=== PATIENT | male | born 1950 | race American Indian/Alaskan Native ===

== ENCOUNTER 2020-10-06 11:03 | Outpatient (CLI) | payer MEDICARE ==
--- NOTE | 2020-10-06 14:20 | Cat Scan Report ---
CT ABDOMEN AND PELVIS WITHOUT CONTRAST INDICATION / CLINICAL INFORMATION: MALIGNANT NEOPLASM OF PROSTATE. TECHNIQUE: Axial CT images were obtained through the abdomen and pelvis without IV contrast. Sagittal and frazier l reformatted images. All CT scans at this location are performed using CT dose reduction for ALARA b y means of automated exposure control. COMPARISON: None available. FINDINGS: LOWER CHEST: No significant abnormality. LIVER: No significant abnormality. GALLBLADDER: No significant abnormality. BILE DUCTS: No significant abnormality. PANCREAS: No significant abnormality. SPLEEN: No significant abnormality. ADRENALS: No significant abnormality. RIGHT KIDNEY and URETER: A punctate calyceal stone is identified at the inferior pole of the right ki dney. No focal renal lesion, ureteral stone or hydronephrosis. LEFT KIDNEY and URETER: 2 cysts are identified in the left kidney measuring 1 cm and 1.7 cm. No evide nce for mass, calculus or hydronephrosis. STOMACH and SMALL BOWEL: No significant abnormality. COLON: No significant abnormality. APPENDIX: No significant abnormality. PERITONEUM: No free fluid. No free air. No fluid collection. LYMPH NODES: No significant adenopathy. AORTA and ARTERIES: Mild diffuse calcific plaques are noted in the aorta and iliac arteries. No aneur ysm. IVC and VEINS: No significant abnormality. URINARY BLADDER: No significant abnormality. REPRODUCTIVE ORGANS: No significant abnormality. The prostate gland is normal size measuring 4.5 cm i n diameter. ADDITIONAL FINDINGS: None. SKELETAL SYSTEM: The bony structures are osteopenic. Mild thoracolumbar spondylosis is noted. No susp icious bony lesion is detected. IMPRESSION: No evidence for metastatic disease to the abdomen or pelvis. Punctate right renal stone, nonobstructing. 2 left renal cysts. Osteopenia. No osseous metastases are appreciated. Signer Name: Dilan Cadena Jr, MD Signed: 10/06/2020 2:16 PM Workstation Name: [id number]
--- NOTE | 2020-10-06 15:16 | Nuclear Medicine Report ---
NM bone scan whole body INDICATION / CLINICAL INFORMATION: MALIGNANT NEOPLASM OF PROSTATE. TRACER: Technetium 99m MDP 26.3 mCi IV injection. TECHNIQUE: Following injection of the above tracer and appropriate delay, whole body imaging was perf ormed in the anterior and posterior projections. COMPARISON: No relevant prior imaging study available. FINDINGS: Physiologic uptake of tracer is noted. There is mild uptake at the right knee likely due to degenerat neville change. No suspicious uptake is present to suggest metastatic disease. IMPRESSION: Negative for metabolically active metastatic disease. Signer Name: Neri Pope MD Signed: 10/06/2020 3:12 PM Workstation Name: [id number]
== END 2020-10-06 11:04 | disposition home or self-care (01) ==
LOC: NM 11:03
PROVIDERS: ATTEND Urology
DX: C61 Malignant neoplasm of prostate (principal); N28.1 Cyst of kidney, acquired; I70.0 Atherosclerosis of aorta; I70.8 Atherosclerosis of other arteries; M47.815 Spondylosis without myelopathy or radiculopathy, thoracolumbar region
CPT/HCPCS: 74176; 78306; A9503